=== PATIENT | female | born 1960 | race Two or more races ===

== ENCOUNTER 2023-05-27 14:56 | Outpatient (CLI) | payer OTHER | END 2023-05-27 14:57 | disposition home or self-care (01) | LOC: CSHMRI 14:56 | PROVIDERS: ATTEND Neurological Surgery | DX: M47.22 Other spondylosis with radiculopathy, cervical region (principal); Z98.890 Other specified postprocedural states; M25.78 Osteophyte, vertebrae | CPT/HCPCS: 72141 ==